=== PATIENT | female | born 1975 | race African-American/Black ===

== ENCOUNTER 2024-01-13 05:43 | Emergency (ER) | payer MEDICAID ==
[~2024-01-13] VITALS: Ht 167.6 cm; Wt 77.0 kg
[2024-01-13 05:52] VITALS: O2SAT 100
[2024-01-13 06:44] LABS: BASOPHILS % 1.7 % (0.0-2.0); EOSINOPHILS % 5.7 % (0.0-5.0); HEMATOCRIT. 44.8 % (36.0-48.0); HEMOGLOBIN. 14.8 g/dL (12.0-16.0); LYMPHOCYTES % 33.1 % (20.0-50.0); MEAN CORPUSCULAR HEMOGLOBIN 30.5 pg (28.0-32.0); MEAN CORPUSCULAR HGB CONC 33.1 g/dL (31.0-37.0); MEAN CORPUSCULAR VOLUME 92.2 fL (81.0-99.0); MEAN PLATELET VOLUME 8.6 fl (7.4-10.4); MONOCYTES % 7.6 % (2.0-8.0); NEUTROPHILS % 51.9 % (40.0-76.0); PLATELET 336 x1000/uL (130-400); RED BLOOD CELL COUNT 4.86 mill/uL (4.2-5.4); RED CELL DISTRIBUTION WIDTH 14.8 % (11.6-14.6)
[2024-01-13 07:02] LABS: CHLORIDE 110 mEq/L (98-107); POTASSIUM 3.5 mEq/L (3.5-5.1); SODIUM 139 mEq/L (136-145)
[2024-01-13 07:03] LABS: CARBON DIOXIDE 23 mEq/L (21-32)
[2024-01-13 07:04] LABS: CALCIUM 9.7 mg/dL (8.7-10.4)
[2024-01-13 07:08] LABS: CREATININE 0.8 mg/dL (0.6-1.0); GLUCOSE 89 mg/dL (70-105)
[2024-01-13 07:09] LABS: TROPONIN I HIGH SENSITIVITY 14 ng/L (3.0-34); UREA NITROGEN BLOOD 15 mg/dL (9-23)
[2024-01-13 07:10] LABS: ALANINE AMINOTRANSFERASE 10 IU/L (10-49); ALBUMIN 4.9 g/dL (3.2-4.8); ASPARTATE AMINOTRANSFERASE 23 IU/L (<34)
[2024-01-13 07:11] LABS: BILIRUBIN TOTAL 0.6 mg/dL (0.1-1.0)
[2024-01-13] MEDS: MAGNESIUM/ALUMINUM HYDROXIDE/SIMETHICONE 30ML UDC PO STA (07:27)
[2024-01-13] MEDS ORDERED: FAMO40TA7 MT (09:21)
[2024-01-13] MEDS: MAGNESIUM/ALUMINUM HYDROXIDE/SIMETHICONE 30ML UDC PO NR (09:26)
[2024-01-13 09:41] VITALS: BP 132/85; PULSE 80; RESP 14; TEMP 98.6
== END 2024-01-13 09:43 | disposition home or self-care (01) ==
LOC: ER 05:43
DX: K21.9 Gastro-esophageal reflux disease without esophagitis (principal); D25.9 Leiomyoma of uterus, unspecified; D17.1 Benign lipomatous neoplasm of skin and subcutaneous tissue of trunk; F12.10 Cannabis abuse, uncomplicated
CPT/HCPCS: 36415; 74176; 80053; 84484; 85025; 99284